=== PATIENT | female | born 1960 | race Hispanic/Latino ===

== ENCOUNTER → 2018-10-03 | Outpatient (CLI) | payer MEDICARE, OTHER | END | disposition home or self-care (01) | LOC: OIH 11:16 | PROVIDERS: ATTEND Internal Medicine | DX: M16.12 Unilateral primary osteoarthritis, left hip (principal); M47.816 Spondylosis without myelopathy or radiculopathy, lumbar region; M85.852 Other specified disorders of bone density and structure, left thigh | CPT/HCPCS: 73502 ==

== ENCOUNTER → 2020-06-16 | Outpatient (CLI) | payer BC | END | disposition home or self-care (01) | LOC: RAH 08:07 | PROVIDERS: ATTEND Internal Medicine | DX: R74.8 Abnormal levels of other serum enzymes (principal); K75.81 Nonalcoholic steatohepatitis (NASH); K80.20 Calculus of gallbladder without cholecystitis without obstruction; M54.14 Radiculopathy, thoracic region | CPT/HCPCS: 72070; 76700 ==